=== PATIENT | female | born 1970 | race Caucasian/White ===

== ENCOUNTER 2020-03-26 15:07 | Outpatient (RCR) | payer BC, SELFPAY | END 2020-04-20 23:59 | disposition home or self-care (01) | LOC: SPT 15:07 | PROVIDERS: PCP Registered Nurse; Referring Provider Orthopaedic Surgery; Visit Provider Orthopaedic Surgery | DX: Z47.1 Aftercare following joint replacement surgery (principal); Z96.651 Presence of right artificial knee joint | CPT/HCPCS: 97032; 97110; 97161; 97530 ==

== ENCOUNTER 2020-04-21 06:00 | Outpatient (RCR) | payer BC, SELFPAY | END 2020-05-20 23:59 | disposition home or self-care (01) | LOC: SPT 06:00 | PROVIDERS: PCP Registered Nurse; Referring Provider Orthopaedic Surgery; Visit Provider Orthopaedic Surgery | DX: Z47.1 Aftercare following joint replacement surgery (principal); Z96.651 Presence of right artificial knee joint | CPT/HCPCS: 97110; 97140 ==

== ENCOUNTER 2020-05-12 15:55 | Outpatient (CLI) | payer BC, SELFPAY ==
--- NOTE | 2020-05-12 16:02 | XR_ITS ---
WS: [id number] LATERAL LUMBAR SPINE: 3 view. Lateral radiographs are performed in upright neutral, flexion and extension to the patient's toleranc e. HISTORY: POSTLAMINECTOMY SYNDROME COMPARISON: 06/29/2020 Extensive posterior lumbar fusion hardware at L4-5 and L5-S1. Anterior and posterior fusion hardware with interbody spacers. No fractures are evident. Increase in the lumbar lordosis. Posterior alignmen t is normal taking into consideration the rotation of the vertebral bodies. There is very slight retr olisthesis of the L2 vertebral body which does not change with flexion or extension. XR/XR lumbar spine f/e only [id number] IMPRESSION: No lumbar spine instability. Extensive anterior posterior fusion hardware from L4 through S1.
== END 2020-05-12 15:56 | disposition home or self-care (01) ==
LOC: RADWPI 15:58
PROVIDERS: Family Provider Registered Nurse; PCP Registered Nurse; Visit Provider Nurse Practitioner
DX: M96.1 Postlaminectomy syndrome, not elsewhere classified (principal); M43.27 Fusion of spine, lumbosacral region
CPT/HCPCS: 72120

== ENCOUNTER 2020-05-21 06:00 | Outpatient (RCR) | payer BC, SELFPAY | END 2020-06-20 23:59 | disposition home or self-care (01) | LOC: SPT 06:00 | PROVIDERS: PCP Registered Nurse; Referring Provider Orthopaedic Surgery; Visit Provider Orthopaedic Surgery | DX: Z47.1 Aftercare following joint replacement surgery (principal); Z96.651 Presence of right artificial knee joint | CPT/HCPCS: 97110; 97140; 97150 ==

== ENCOUNTER 2020-06-21 06:00 | Outpatient (RCR) | payer BC, SELFPAY | END 2020-07-20 23:59 | disposition home or self-care (01) | LOC: SPT 06:00 | PROVIDERS: PCP Registered Nurse; Referring Provider Orthopaedic Surgery; Visit Provider Orthopaedic Surgery | DX: Z47.1 Aftercare following joint replacement surgery (principal); Z96.651 Presence of right artificial knee joint | CPT/HCPCS: 97110; 97140 ==

== ENCOUNTER 2020-07-21 06:00 | Outpatient (RCR) | payer BC, SELFPAY | END 2020-08-20 23:59 | disposition home or self-care (01) | LOC: SPT 06:00 | PROVIDERS: PCP Registered Nurse; Referring Provider Orthopaedic Surgery; Visit Provider Orthopaedic Surgery | DX: Z47.1 Aftercare following joint replacement surgery (principal); Z96.651 Presence of right artificial knee joint | CPT/HCPCS: 97110; 97140 ==

== ENCOUNTER 2020-08-21 06:00 | Outpatient (RCR) | payer BC, SELFPAY | END 2020-09-20 23:59 | disposition home or self-care (01) | LOC: SPT 06:00 | PROVIDERS: PCP Registered Nurse; Referring Provider Orthopaedic Surgery; Visit Provider Orthopaedic Surgery | DX: Z47.1 Aftercare following joint replacement surgery (principal); Z96.651 Presence of right artificial knee joint | CPT/HCPCS: 97110; 97140 ==

== ENCOUNTER 2020-09-21 06:00 | Outpatient (RCR) | payer BC, SELFPAY | END 2020-10-18 23:59 | disposition home or self-care (01) | LOC: SPT 06:00 | PROVIDERS: PCP Registered Nurse; Referring Provider Orthopaedic Surgery; Visit Provider Orthopaedic Surgery | DX: Z47.1 Aftercare following joint replacement surgery (principal); Z96.651 Presence of right artificial knee joint | CPT/HCPCS: 97110; 97140 ==

== ENCOUNTER 2020-10-19 06:00 | Outpatient (RCR) | payer BC, SELFPAY | END 2020-11-18 23:59 | disposition home or self-care (01) | LOC: SPT 06:00 | PROVIDERS: PCP Registered Nurse; Referring Provider Orthopaedic Surgery; Visit Provider Orthopaedic Surgery | DX: Z47.1 Aftercare following joint replacement surgery (principal); Z96.651 Presence of right artificial knee joint | CPT/HCPCS: 97110 ==

== ENCOUNTER → 2020-12-07 13:55 | Outpatient (BNVA) | payer BC, SELFPAY | PROVIDERS: PCP Registered Nurse; Referring Provider Orthopaedic Surgery; Visit Provider Specialist | DX: T84.82XA Fibrosis due to internal orthopedic prosthetic devices, implants and grafts, initial encounter (principal); M25.561 Pain in right knee; Z96.651 Presence of right artificial knee joint | CPT/HCPCS: 73560; 73565 ==

== ENCOUNTER → 2020-12-13 10:06 | Outpatient (BNVA) | payer BC, SELFPAY | PROVIDERS: PCP Registered Nurse; Visit Provider Nurse Practitioner | DX: R30.0 Dysuria (principal); N39.0 Urinary tract infection, site not specified | CPT/HCPCS: 81000; 87086 ==

== ENCOUNTER → 2020-12-19 17:55 | Outpatient (BNVA) | payer BC, SELFPAY | PROVIDERS: PCP Registered Nurse; Visit Provider Nurse Practitioner Family | DX: L50.9 Urticaria, unspecified (principal); Z87.440 Personal history of urinary (tract) infections | CPT/HCPCS: 81000; 87086 ==

== ENCOUNTER → 2021-02-11 14:47 | Outpatient (BNVA) | payer BC, SELFPAY | PROVIDERS: PCP Registered Nurse; Visit Provider Registered Nurse Neonatal Intensive Care | DX: J21.9 Acute bronchiolitis, unspecified (principal) | CPT/HCPCS: 71046 ==

== ENCOUNTER 2021-05-03 06:00 | Outpatient (RCR) | payer BC, SELFPAY | END 2021-05-20 23:59 | disposition home or self-care (01) | LOC: SPT 06:00 | PROVIDERS: PCP Registered Nurse; Referring Provider Student in an Organized Health Care Education/Training Program; Visit Provider Student in an Organized Health Care Education/Training Program | DX: Z47.1 Aftercare following joint replacement surgery (principal); Z96.651 Presence of right artificial knee joint | CPT/HCPCS: 97110; 97161 ==

== ENCOUNTER 2021-05-21 06:00 | Outpatient (RCR) | payer BC, SELFPAY | END 2021-06-20 23:59 | disposition home or self-care (01) | LOC: SPT 06:00 | PROVIDERS: PCP Registered Nurse; Visit Provider Student in an Organized Health Care Education/Training Program | DX: Z96.651 Presence of right artificial knee joint (principal) | CPT/HCPCS: 97110 ==

== ENCOUNTER 2021-06-21 06:00 | Outpatient (RCR) | payer BC, SELFPAY | END 2021-07-06 23:00 | disposition home or self-care (01) | LOC: SPT 06:00 | PROVIDERS: PCP Registered Nurse; Visit Provider Student in an Organized Health Care Education/Training Program | DX: Z47.1 Aftercare following joint replacement surgery (principal); Z96.651 Presence of right artificial knee joint | CPT/HCPCS: 97110 ==

== ENCOUNTER 2021-09-16 08:16 | Outpatient (CLI) | payer BC, SELFPAY ==
--- NOTE | 2021-09-16 08:24 | MM_ITS ---
WS: [email or web address] BILATERAL SCREENING DIGITAL MAMMOGRAM WITH CAD HISTORY: SCREENING COMPARISON: 11/23/2018 Bilateral CC and MLO views submitted. Computer aided detection analyzed. Breast composition: There are scattered areas of fibroglandular density. No suspicious masses, microc alcifications or architectural distortion. MM/[place] [id number] IMPRESSION: BI-RADS: 1-Negative FOLLOW UP: 1 Year Follow-up
== END 2021-09-16 08:17 | disposition home or self-care (01) ==
PROVIDERS: PCP Registered Nurse; Visit Provider Registered Nurse
DX: Z12.31 Encounter for screening mammogram for malignant neoplasm of breast (principal)
CPT/HCPCS: 77067

== ENCOUNTER → 2022-02-27 12:21 | Outpatient (BNVA) | payer BC, SELFPAY | PROVIDERS: PCP Registered Nurse; Visit Provider Registered Nurse Neonatal Intensive Care | DX: N39.0 Urinary tract infection, site not specified (principal); M25.512 Pain in left shoulder | CPT/HCPCS: 81000 ==

== ENCOUNTER 2023-01-02 08:26 | Outpatient (CLI) | payer BC, SELFPAY ==
--- NOTE | 2023-01-02 08:37 | MM_ITS ---
WS: [email or web address] BILATERAL SCREENING DIGITAL TOMOSYNTHESIS MAMMOGRAM WITH CAD HISTORY: SCREENING COMPARISON: 09/16/2021, 11/23/2018 Bilateral CC and MLO views with tomosynthesis and synthetic mammography submitted. Computer aided det ection analyzed. Breast composition: There are scattered areas of fibroglandular density. No suspicious masses, microc alcifications or architectural distortion. MM/[place] [id number] IMPRESSION: BI-RADS: 1-Negative FOLLOW UP: 1 Year Follow-up
== END 2023-01-02 08:27 | disposition home or self-care (01) ==
PROVIDERS: PCP Registered Nurse; Visit Provider Registered Nurse
DX: Z12.31 Encounter for screening mammogram for malignant neoplasm of breast (principal)
CPT/HCPCS: 77063; 77067

== ENCOUNTER → 2023-03-07 07:56 | Outpatient (BNVA) | payer BC, SELFPAY | PROVIDERS: PCP Registered Nurse; Visit Provider Nurse Practitioner Family | DX: R39.9 Unspecified symptoms and signs involving the genitourinary system (principal); N32.89 Other specified disorders of bladder | CPT/HCPCS: 81000 ==

== ENCOUNTER 2023-03-29 07:00 | Outpatient (RCR) | payer BC, SELFPAY | END 2023-04-20 23:59 | disposition home or self-care (01) | LOC: SPT 07:00 | PROVIDERS: PCP Registered Nurse; Visit Provider Physician Assistant | DX: M19.012 Primary osteoarthritis, left shoulder (principal) | CPT/HCPCS: 97110; 97161 ==

== ENCOUNTER 2023-08-01 10:37 | Outpatient (RCR) | payer BC, SELFPAY | END 2023-08-20 23:59 | disposition home or self-care (01) | LOC: SPT 10:37 | PROVIDERS: PCP Registered Nurse; Visit Provider Physician Assistant | DX: Z47.1 Aftercare following joint replacement surgery (principal); Z96.612 Presence of left artificial shoulder joint | CPT/HCPCS: 97110; 97161 ==

== ENCOUNTER 2023-08-21 06:00 | Outpatient (RCR) | payer BC, SELFPAY | END 2023-09-20 23:59 | disposition home or self-care (01) | LOC: SPT 06:00 | PROVIDERS: PCP Registered Nurse; Visit Provider Physician Assistant | DX: Z96.612 Presence of left artificial shoulder joint (principal); Z47.1 Aftercare following joint replacement surgery | CPT/HCPCS: 97110 ==

== ENCOUNTER 2023-09-21 06:00 | Outpatient (RCR) | payer BC, SELFPAY | END 2023-10-19 23:59 | disposition home or self-care (01) | LOC: SPT 06:00 | PROVIDERS: PCP Registered Nurse; Visit Provider Physician Assistant | DX: Z47.1 Aftercare following joint replacement surgery (principal); Z96.612 Presence of left artificial shoulder joint | CPT/HCPCS: 97110 ==

== ENCOUNTER 2024-01-08 07:21 | Outpatient (CLI) | payer BC, SELFPAY ==
--- NOTE | 2024-01-08 07:29 | MM_ITS ---
WS: [email or web address] BILATERAL SCREENING DIGITAL TOMOSYNTHESIS MAMMOGRAM WITH CAD HISTORY: SCREENING COMPARISON: 01/02/2023 09/16/2021 and 09/28/2017 Bilateral CC and MLO views with tomosynthesis and synthetic mammography submitted. Computer aided det ection analyzed. Breast composition: There are scattered areas of fibroglandular density. No suspicious masses, microc alcifications or architectural distortion. MM/[place] [id number] IMPRESSION: BI-RADS: 1-Negative FOLLOW UP: 1 Year Follow-up
== END 2024-01-08 07:22 | disposition home or self-care (01) ==
LOC: RAD 07:21
PROVIDERS: PCP Registered Nurse; Visit Provider Registered Nurse
DX: Z12.31 Encounter for screening mammogram for malignant neoplasm of breast (principal)
CPT/HCPCS: 77063; 77067

== ENCOUNTER 2024-03-09 06:00 | Outpatient (CLI) | payer BC, SELFPAY | END 2024-03-09 06:01 | disposition home or self-care (01) | LOC: LAB 04-30 15:04 | PROVIDERS: PCP Registered Nurse; Visit Provider Emergency Medicine | DX: R30.9 Painful micturition, unspecified (principal) | CPT/HCPCS: 81000; 87077; 87086; 87184 ==

== ENCOUNTER → 2024-06-02 15:34 | Outpatient (BNVA) | payer BC, SELFPAY | PROVIDERS: PCP Registered Nurse; Visit Provider Emergency Medicine | DX: N12 Tubulo-interstitial nephritis, not specified as acute or chronic (principal); R39.9 Unspecified symptoms and signs involving the genitourinary system | CPT/HCPCS: 81000; 87086 ==

== ENCOUNTER → 2024-10-10 11:17 | Outpatient (BNVA) | payer BC, SELFPAY | PROVIDERS: PCP Registered Nurse; Visit Provider Family Medicine | DX: R39.9 Unspecified symptoms and signs involving the genitourinary system (principal) | CPT/HCPCS: 81000; 87086 ==

== ENCOUNTER 2025-03-19 08:53 | Outpatient (CLI) | payer BC, SELFPAY ==
--- NOTE | 2025-03-19 08:58 | MM_ITS ---
WS: [email or web address] BILATERAL SCREENING DIGITAL TOMOSYNTHESIS MAMMOGRAM WITH CAD HISTORY: SCREENING COMPARISON: 01/08/2024, 01/02/2023, 09/16/2021 Bilateral CC and MLO views with tomosynthesis and synthetic mammography submitted. Computer aided detection analyzed. Breast composition: There are scattered areas of fibroglandular density. No suspicious masses, microcalcifications or architectural distortion. MM/MM scr BI tomosynthesis [id number] IMPRESSION: BI-RADS: 1 - Negative. FOLLOW UP: 1 Year Follow-up
== END 2025-03-19 08:54 | disposition home or self-care (01) ==
LOC: RAD 08:54
PROVIDERS: PCP Family Medicine; Visit Provider Family Medicine
DX: Z12.31 Encounter for screening mammogram for malignant neoplasm of breast (principal); R92.323 Mammographic fibroglandular density, bilateral breasts
CPT/HCPCS: 77063; 77067